=== PATIENT | female | born 2005 | race Two or more races ===

== ENCOUNTER 2025-09-20 19:37 | Emergency (ER) | payer BC, SELFPAY ==
[2025-09-20 19:39] VITALS: BMI 32.9
[2025-09-20 20:30] VITALS: BP 146/90; PULSE 101; RESP 18; TEMP 37; O2SAT 98
--- NOTE | 2025-09-20 21:01 | EDNOTE_ITS ---
ED Wound/Laceration-RME/HPI General Chief Complaint: Wound/Laceration Stated Complaint: LAC TO RIGHT HAND FINGER Time Seen by Provider: 09/20/25 19:56 Arrival date/time: 09/20/25 19:37 This is a case of 19-year-old female with no medical history came in in the emergency room due to laceration at the fifth finger right hand history of present illness started 1 hour prior to arrival in the emergency room when patient was dishwashing accidentally cut his finger with a glass sustaining a laceration patient tetanus shot is up-to-date Limitations: no limitations Related Data Previous Rx's ?Medication ?Instructions ?Recorded cephalexin 500 mg capsule 500 mg PO Q8H #30 caps 09/20 ibuprofen 600 mg tablet 600 mg PO Q8H PRN pain #20 t abs 09/20/25 mupirocin 2 % topical ointment 1 applic topical BID #2 2 grams 09/20/25 (Centany) Allergies Allergy/AdvReac Type Severity Reaction Status Date / Time No Known Allergies Allergy Verified 09/20/25 19:38 Review of Systems Review of Systems Systems Reviewed: All systems reviewed, normal except as documented Past Medical History Social History SMOKING STATUS: Never smoker ED Exam General Limitations: Present no limitations General appearance: Present alert, in no apparent distress and other (Patient is awake alert oriented not in distress nontoxic looking well-hydrated well- nourished) Head Head exam: Present atraumatic Eye Eye exam: Present normal appearance, PERRL and EOMI ENT ENT exam: Present normal exam, normal oropharynx and mucous membranes moist Neck Neck exam: Present normal inspection, full ROM and trachea midline Chest Chest inspection: Present normal inspection and symmetric chest wall rise Respiratory Respiratory exam: Present normal lung sounds bilaterally Cardiovascular Cardiovascular exam: Present regular rate, normal rhythm and normal heart sounds Abdominal Exam Abdominal exam: Present soft and normal bowel sounds Extremities Exam Extremities exam: Present normal inspection and full ROM Back Exam Back exam: Present normal inspection and full ROM Neurological Exam Neurological exam: Present alert, oriented X3, CN II-XII intact, normal gait and reflexes normal; Absent motor sensory deficit Psychiatric Psychiatric exam: Present normal affect and normal mood Skin Skin exam: Present warm, dry, intact, normal color and other (Noted 4 cm flap laceration minimal bleeding no foreign body no bone or tendon injury nail is intact no abscess no cellulitis no redness pulses were full and equal capillary refill less than 2 seconds sensory is intact) Course Quality Measures none Vital Signs Vital signs: Vital Signs Temperature 98.6 F 09/20/25 20:30 Pulse Rate 101 H 09/20/25 20:30 Respiratory Rate 18 09/20/25 20:30 Blood Pressure 146/90 H 09/20/25 20:30 Pulse Oximetry (%) 98 09/20/25 20:30 Oxygen Delivery Method Room Air 09/20/25 20:30 Oxygen saturation is 98% in room air PROCEDURES: Laceration Laceration 1: Site: other (Fifth finger right) Size (cm): 4 Description: flap Depth: simple, single layer Local Anesthetic: lidocaine 1% Amount of anesthesia used (mL): 4 Pre-repair: wound explored, irrigated extensively and deep structures intact Skin layer closed with: nylon Suture size (cm): 4-0 Number of sutures: 8 Technique: simple, interrupted Wound / Laceration MDM Narrative MDM Narrative:: This is a case of 19-year-old female with no medical history came in in the emergency room due to laceration at the fifth finger right hand history of present illness started 1 hour prior to arrival in the emergency room when patient was dishwashing accidentally cut his finger with a glass sustaining a laceration patient tetanus shot is up-to-date physical examination patient is awake alert oriented not in distress nontoxic looking well-hydrated well- nourished patient sustained a 4 cm laceration on the fifth finger right hand flap laceration minimal bleeding no foreign body no tendon or bone injury no abscess no cellulitis no redness ROM intact nail intact pulses were full and equal capillary refill less than 2 seconds sensory is intact laceration repair was performed patient tolerated well the procedure no complication noted procedu re done via universal protocol and via sterile technique patient was prescribed with cephalexin and mupirocin to prevent infection ibuprofen for pain they will follow-up with PCP in 2 days for reevaluation and wound check in 10 days for removal of suture for any worsening symptoms or any signs or symptoms of infection return precaution in the ER is advised Patient was discharged with comfortable condition walking with stable gait. Patient verbalized no further complains explained diagnosis and answered patient question. Patient is comfortable with the proposed management plan including the need to follow up with his/her primary care physician and any specialist if applicable Discussed patient for any urgent condition or worsening sx, He/She needed to go to emergency room immediately or call 911. Patient acknowledge the responsibility to follow up as instructed and to monitor her/his symptoms. For any persistence of the symptoms for more than 3-5 days return precaution advised. Discussed the result of the test and was given printed discharge instruction Patient data External records reviewed:: [facility] previous records Clinical information provided by:: patient Social determinants that could affect healthcare access:: none Patient has the following chronic illnesses:: None How is presenting disease/condition affected by chronic disease/condition?: no chronic disease Evaluation data The following diagnostics were reviewed and interpreted by me:: other (specify) (None) Lab and/or radiology exams considered but not ordered:: None Interpretation Summary: None Medications / Prescriptions Medications or Prescriptions considered but not ordered:: Given Medication administrations:: Given Consultations Consultation(s) initiated? (list below): No Diagnosis Wound Differential Diagnosis: laceration Most likely diagnosis given after review of the tests above:: Finger laceration Admission Indicated Admission indicated?: not indicated Explain why admission is indicated or not indicated:: Not indicated Admission Request Was there a request for admission?: No Admission Attestation Admission request attestation: Not indicated Disposition Plan Disposition Plan: Discharge Discharge Attestation Discharge Attestation: The patient and all family members were given an opportunity to ask questions and understood the discharge instructions. Discharge instructions specifically effects, indications for sooner follow up or return to the emergency department, and the expected course of current diagnosis. Patient condition: Stable Discharge Plan Plan Patient Disposition: HOME (Self Care) Patient condition on transfer: Stable Prescriptions/Referrals Prescriptions/Med Rec: New cephalexin 500 mg capsule 500 mg PO Q8H Qty: 30 0RF mupirocin [Centany] 2 % ointment 1 applic topical BID Qty: 22 0RF ibuprofen 600 mg tablet 600 mg PO Q8H PRN (Reason: pain) Qty: 20 0RF Problem List Clinical Impression: Finger laceration Patient/Caregiver Discharge Instructions Education Materials: Suture Care, ED Laceration: All Closures Additional Instructions: Follow-up with your primary care physician in 2 days for wound check and 10 days for removal of suture worsening symptoms or any emergent concern such as redness swelling discharge from the wound pain fever chills return to the emergency room immediately or call 911 take your medication as directed finish the course of antibiotic keep wound clean and dry Print Language: [place] Stand Alone Forms: [employer] Award Info., Patient Portal Info Letter PA/MEDICAL AND HEALTH SERVICES MANAGER Supervising Physician PA/MEDICAL AND HEALTH SERVICES MANAGER Supervising Physician: Dr. Martell
== END 2025-09-20 21:14 | disposition home or self-care (01) ==
PROVIDERS: Emergency Provider Emergency Medicine
DX: S61.216A Laceration without foreign body of right little finger without damage to nail, initial encounter (principal); W25.XXXA Contact with sharp glass, initial encounter; Y93.G1 Activity, food preparation and clean up
CPT/HCPCS: 12002; 99281